=== PATIENT | male | born 1960 | race Caucasian/White ===

== ENCOUNTER 2018-06-22 16:20 | Outpatient (CLI) | payer OTHER ==
[2018-06-22 17:19] LABS: #Basophils 0.1 thou/uL (0.0-0.2); #Lymphocytes 2.2 thou/uL (1.20-3.40); #Monocytes 0.4 thou/uL (0.11-0.59); %Basophils 1.1 % (0.0-1.0); %Eosinophils 0.6 % (0.0-10.0); %Lymphocytes 37.9 % (21.0-51.0); %Monocytes 7.2 % (0.0-10.0); %Neutrophils 53.1 % (42.0-75.0); Hemoglobin 14.7 g/dL (14.0-18.0); Mean Corpuscular HGB CONC 33.2 g/dL (32.0-36.0); Mean Corpuscular Hemoglobin 31.9 pg (27.0-31.0); Mean Corpuscular Volume 96.1 fL (78.0-98.0); Mean Platelet Volume 7.3 fL (7.4-10.4); Platelet Count 261 thou/uL (130-400); RBC Distribution Width 12.1 % (11.5-14.5); White Blood Cell (WBC) Count 5.7 thou/uL (4.8-10.8)
[2018-06-22 17:32] LABS: Prothrombin Time 13.5 SEC (12.0-14.7)
[2018-06-22 17:37] LABS: Anion Gap 11 mmol/L (10-20); BUN (Urea Nitrogen) 12 mg/dL (8.4-25.7); Calc. Creatinine Clearance 0 mL/min (70-130); Calcium 9.3 mg/dL (7.8-10.44); Carbon Dioxide 27 mmol/L (22-29); Chloride 107 mmol/L (98-107); Estimated GFR-MDRD 76; Glucose 120 mg/dL (70-105); Potassium 4.1 mmol/L (3.5-5.1); Sodium 141 mmol/L (136-145)
== END 2018-06-22 16:21 | disposition home or self-care (01) ==
LOC: LABBT 16:20
PROVIDERS: ATTEND Orthopaedic Surgery
DX: Z01.818 Encounter for other preprocedural examination (principal); K40.90 Unilateral inguinal hernia, without obstruction or gangrene, not specified as recurrent; N43.3 Hydrocele, unspecified
CPT/HCPCS: 80048; 85025; 85610; 86850; 86900; 86901; 87081; 93005; 93010

== ENCOUNTER 2018-06-22 16:47 | Observation (INO) | payer OTHER ==
[2018-06-22 16:39] VITALS: BMI 20.7
[2018-06-26] MEDS ORDERED: Midazolam HCl 2 mg/2 ml Vial ONE (06:18)
[2018-06-26] MEDS ORDERED: Fentanyl 100 MCG/2 ML VIAL ONE (06:18)
[2018-06-26] MEDS ORDERED: Clindamycin/D5W 600 mg/50 ml Premix Bag ONE (06:18)
[2018-06-26] MEDS ORDERED: Ketorolac Tromethamine 30 MG/ML VIAL IVP PRN (07:43)
[2018-06-26] MEDS ORDERED: Ropivacaine 0.2% 550 ML 550 ML NERVE BLCK SCH (07:43)
[2018-06-26] MEDS ORDERED: HYDROcodone/Acetaminophen 10/325 mg Tablet PO PRN ×2 (07:43)
[2018-06-26] MEDS ORDERED: Ondansetron PF 4 MG/2 ML Vial IVP PRN (07:43)
[2018-06-26] MEDS ORDERED: Fentanyl 100 MCG/2 ML VIAL IV PRN (07:43)
[2018-06-26] MEDS ORDERED: Zolpidem Tartrate 5 MG TAB PO PRN (07:43)
[2018-06-26] MEDS ORDERED: Promethazine HCl 25 MG/ML VIAL IM PRN ×2 (07:43→10:06)
[2018-06-26] MEDS ORDERED: traMADol HCl 50 MG TAB PO PRN ×2 (07:43)
[2018-06-26] MEDS ORDERED: Ropivacaine 0.2% HCl/PF (40 MG/20 ML VIAL) ONE (10:02)
[2018-06-26] MEDS ORDERED: Ropivacaine 0.5% HCl/PF (150 MG/30 ML VIAL) ONE (10:02)
[2018-06-26] MEDS ORDERED: Ondansetron HCl/PF 4 MG/2 ML Vial IVP PRN (10:06)
[2018-06-26] MEDS ORDERED: Promethazine HCl 25 MG/ML VIAL SLOW IVP PRN (10:06)
[2018-06-26] MEDS ORDERED: Bisacodyl 10 MG SUPP PR PRN (10:16)
[2018-06-26] MEDS ORDERED: Methocarbamol 1 GM/10 ML VIAL SLOW IVP PRN (10:16)
[2018-06-26] MEDS ORDERED: Acetaminophen 325 MG TAB PO PRN (10:16)
[2018-06-26] MEDS ORDERED: Milk Of Magnesia 30 ML UDCUP PO PRN (10:16)
[2018-06-26] MEDS ORDERED: diphenhydrAMINE 50 MG CAP PO PRN (10:16)
[2018-06-26] MEDS: Dextrose 5 %-0.45 % NaCl 1,000 ML IV SCH (11:11)
--- NOTE | 2018-06-26 13:07 | OP ---
DATE OF PROCEDURE: 06/26/2018 PREOPERATIVE DIAGNOSIS: Left glenohumeral arthritis. POSTOPERATIVE DIAGNOSIS: Left glenohumeral arthritis. PROCEDURE PERFORMED: Left shoulder total shoulder replacement. STEMHOLE BORER: Ant Hawk MD ESTIMATED BLOOD LOSS: Around 300 mL of blood loss. ANESTHESIA: The patient did have a general anesthetic as well as a local block. IMPLANTS: Included; Aequalis Perform glenoid, this was a large keeled 40 diameter and this was cemented. We then placed a Flex shoulder system, again Aequalis and the stem was a size 4C and we placed a 48 x 18 high offset humeral head. DISPOSITION: He did go to recovery room in stable condition. INDICATIONS FOR PROCEDURE: This is a 57-year-old male, who has had left shoulder arthritis for years. At this time, he is presenting for replacement. DESCRIPTION OF PROCEDURE: After all appropriate consent forms were explained and signed, he was taken back to the operating room, and at this time, he was given a general anesthetic. Once the level of anesthesia was appropriate, the patient was placed in a modified beach-chair position with all bony problems well padded. Beanbag was inflated to hold him in this position. The arm and shoulder were then prepped and draped in standard surgical fashion. Incision was made down through skin. Bovie was used to coagulate any brisk venous bleeding. Deltopectoral interval was found. The deltoid was taken laterally and pectoralis medially. Once we had swept underneath the deltoid and underneath the conjoint tendon, a self-retaining retractor was applied. At this time, a small amount of CA ligament was taken and a small amount of upper border of pectoralis was also taken. We then found our biceps. This was tagged and cut off as it went directly underneath the large bony spur. It was seemed to be trapped right underneath the bone. Once this was done, we filled our soft tissue medially and then used osteotomes to take a small guille of bone with our subscapularis. Four #5 Ethibond were placed for later repair. We then found the interval between the subscapularis and the capsule for our capsulotomy. We then inserted a straight Hohmann and used this to lever out the humeral head, gently doing external rotation as well. The capsule was taken off the large inferior osteophytes. Once we were able to visualize well enough, a combination of osteotome and rongeur was used to remove some huge osteophytes inferiorly. We continued this all the way around and we were able to also take them off inferiorly and posterior inferior. At this time, we then placed multiple retractors and made our humeral head resection. Once this was made, we then gained access to our humeral shaft. Sound was used to find the canal, followed by sounding up to a 5, but when we trialed, we started with a 2 and once we got to a 4, the 4 was tight. Therefore, the protector plate was applied and we went to work on our glenoid. We created a Bankart lesion and between the labrum and the glenoid , there were multiple loose bodies, some large and some small. There was copious amount of thick capsule circumferentially. This, labrum, and any remaining biceps were removed at this time. We then placed our retractors to gain access to the glenoid. The central peg hole was placed and the central hole was reamed. We had good circumferential bone. We then used a insole tack puller hand to ream for a 40 large glenoid. We then placed a guide to drill 2 more holes for our keeled implant. The holes were drilled, connected with a rongeur and punched. This area was then thoroughly irrigated and dried while the cement was mixed on the back table. We then cemented in our keeled glenoid. All excess bone cement was removed. Once this was done, we gained access again to our humeral head differential of our humeral component. We trialed a 48 high offset with a #7 atop, this gave us a posterior shuck of approximately 50%, inferior shuck of 50%, I could put his hand on his bellly- this was good size. We then removed our trial. We then irrigated and dried. We then impacted the final components on the back table and placed these into the humerus. Prior to placing this final component, we did drill multiple drill holes and passed a #5 Ethibond for a double row repair. At this time, we placed our femoral component, hammered it down, and we then reduced the shoulder one more time. We then went ahead and performed our double row subscapularis repair by placing needles through the bone laterally and tying our medial sutures as well. We then extended the elbow to gain access to our interval and a couple of interval closing sutures were placed. We then thoroughly irrigated and dried. We then closed our deltopectoral interval. 2-0 Vicryl and patricia were used on the skin. Bulky sterile dressing was applied. The patient had a sling placed. He was then awakened and was taken to recovery room in stable condition. All counts were correct at the end of the case and he did receive preoperative IV antibiotics. Job ID: [id number] [facility]
[2018-06-26] MEDS: Clindamycin/D5W 900 MG in Premix Bag 1 BAG IVPB SCH ×2 (15:51→22:12)
[2018-06-26] MEDS ORDERED: Vancomycin HCl 1 GM in Premix Bag 1 BAG IVPB SCH (18:00)
[2018-06-26] MEDS ORDERED: PHENYLEPHRINE-NS 100 MCG/ML 10 ML SYRINGE ONE (19:53)
[2018-06-26] MEDS ORDERED: Ketorolac Tromethamine 30 MG/ML VIAL ONE (19:53)
[2018-06-26] MEDS ORDERED: Vecuronium 10 MG VIAL ONE (19:53)
[2018-06-26] MEDS ORDERED: PROPOFOL 200 MG/20 ML VIAL ONE (19:53)
[2018-06-26] MEDS ORDERED: Sterile Water 10 ML VIAL ONE (19:53)
[2018-06-26] MEDS ORDERED: Glycopyrrolate 0.2 MG/ML 5 ML SYRINGE ONE (19:53)
[2018-06-26] MEDS ORDERED: Dexamethasone 20 MG/5 ML VIAL ONE (19:53)
[2018-06-26] MEDS ORDERED: Ondansetron PF 4 MG/2 ML Vial ONE (19:53)
[2018-06-26] MEDS: Famotidine 20 MG TAB PO SCH (20:39)
[2018-06-27] MEDS: Dextrose 5 %-0.45 % NaCl 1,000 ML IV SCH (04:33)
[2018-06-27] MEDS: Famotidine 20 MG TAB PO SCH (08:14)
[2018-06-27 11:27] VITALS: BP 122/70; TEMP 98.3
--- NOTE | 2018-07-01 16:49 | DIS ---
DATE OF ADMISSION: 06/26/2018 DATE OF DISCHARGE: 06/27/2018 BRIEF HISTORY AND HOSPITAL STAY: This is a 57-year-old healthy male, who came into the hospital on 06/26/2018 and underwent an uncomplicated shoulder replacement. Please see operative report for further details. Postoperatively, he was admitted to the hospital for perioperative IV antibiotics and pain control. The following morning, he was found to be afebrile. His vital signs were stable. He was tolerating his pain with oral medicines only and was tolerating his oral diet as well. At this time, he is discharged home with instructions to start showering and doing daily dressing changes after his pain block has been removed and he is to work on elbow, wrist, and finger exercises. He is to use a sling to protect the arm and I will plan on seeing him back in 7 to 10 days for staple removal. Job ID: [id number]
== END 2018-06-27 11:20 | disposition home or self-care (01) ==
LOC: SURG A 06-26 05:38 → INTOOBSV 06-26 05:38 → SURG B 06-26 11:57
PROVIDERS: ADMIT Orthopaedic Surgery; ATTEND Orthopaedic Surgery
PROC: 0RRK0JZ Replacement of Left Shoulder Joint with Synthetic Substitute, Open Approach (ICD-10-PCS; principal; 2018-06-27)
DX: M19.012 Primary osteoarthritis, left shoulder (principal); Z85.828 Personal history of other malignant neoplasm of skin; Z88.0 Allergy status to penicillin; Z98.890 Other specified postprocedural states
CPT/HCPCS: 96361; 96365; 96375; 96376; A4216; A4306; C1713; G0378; G8978-GP-CI; G8979-GP-CI; G8980-GP-CI; J1100; J1885; J2250; J2405; J2704; J2795; J3010; J3370; J3490